=== PATIENT | female | born 1980 ===

== ENCOUNTER 2016-09-28 01:33 | Emergency (ER) | payer OTHER ==
--- NOTE | 2016-09-28 02:52 | PDOC ---
History of Present Illness - General History Source: Patient Exam Limitations: No Limitations - History of Present Illness Initial Comments: 09/28/16 06:28 The patient is a 36-year-old female (G2, P1) with no significant past medical history, and presents to the emergency department with vaginal bleeding and abdominal pain for . The patient states she is 11 weeks with twins. She reports that she only sees a lot of bright red blood when she wipes in the vaginal area. She is not wearing pads because she is not soaking through her underwear. She reports some mild cramping localized to her suprapubic region that radiates around to her lower back. The patient denies chest pain, shortness of breath, headache and dizziness. The patient denies fever, chills, nausea, vomit, diarrhea and constipation. The patient denies dysuria, frequency, urgency and hematuria. LMP: 07/06/16 Allergies: NKDA Social History: No toxic habits reported. PCP: Dr. Romero Maharaj <Lexy Leslie - Last Filed: 09/28/16 06:53> <Dena Brandt - Last Filed: 09/30/16 02:18> - General Chief Complaint: Vaginal Bleeding Stated Complaint: 11 WKS PREG/VAGINAL BLEEDING/ABD PAIN Time Seen by Provider: 09/28/16 02:51 Past History <Lexy Leslie - Last Filed: 09/28/16 06:53> - Reproductive History Is Patient Now?: Yes (#): 2 Para: 1 Cervical CA: No Dysfunctional Uterine Bleeding: No Ectopic : No Endometrial CA: No Polycystic Ovaries: No Therapeutic (s) & number: No Tubal Ligation: No Spontaneous : 0 - Immunization History Immunization Up to Date: Yes - Psycho/Social/Smoking Cessation Hx Anxiety: No Suicidal Ideation: No Smoking History: Never smoked Have you smoked in the past 12 months: No Information on smoking cessation initiated: No Hx Alcohol Use: No Drug/Substance Use Hx: No Substance Use Type: None <Dena Brandt - Last Filed: 09/30/16 02:18> - Past Medical History Allergies/Adverse Reactions: Allergies Allergy/AdvReac Type Severity Reaction Status Date / Time No Known Allergies Allergy Verified 09/28/16 02:35 Home Medications: Ambulatory Orders NK [No Known Home Medication] 09/28/16 Review of Systems - Review of Systems Able to Perform ROS?: Yes Comments:: 09/28/16 06:28 CONSTITUTIONAL: Absent: fever, chills, diaphoresis, generalized weakness, malaise, loss of appetite HEENT: Absent: rhinorrhea, nasal congestion, throat pain, throat swelling, difficulty swallowing, mouth swelling, ear pain, eye pain, visual changes CARDIOVASCULAR: Absent: chest pain, syncope, palpitations, irregular heart rate, lightheadedness , peripheral edema RESPIRATORY: Absent: cough, shortness of breath, dyspnea with exertion, orthopnea, wheezing, stridor, hemoptysis GASTROINTESTINAL: Present: (+) abdominal pain Absent: abdominal distension, nausea, vomiting, diarrhea, constipation, melena, hematochezia GENITOURINARY: Present: (+) vaginal bleeding Absent: dysuria, frequency, urgency, hesitancy, hematuria, flank pain, genital pain MUSCULOSKELETAL: Absent: myalgia, arthralgia, joint swelling SKIN: Absent: rash, itching, pallor HEMATOLOGIC/IMMUNOLOGIC: Absent: easy bleeding, easy bruising, lymphadenopathy, frequent infections ENDOCRINE: Absent: unexplained weight gain, unexplained weight loss, heat intolerance, cold intolerance NEUROLOGIC: Absent: headache, focal weakness or paresthesias, dizziness, unsteady gait, seizure, mental status changes, bladder or bowel incontinence PSYCHIATRIC: Absent: anxiety, depression, suicidal or homicidal ideation, hallucinations. <Lexy Leslie - Last Filed: 09/28/16 06:53> *Physical Exam - Vital Signs Last Vital Signs Temp Pulse Resp BP Pulse Ox 98.1 F 105 H 18 123/72 98 09/28/16 02:29 09/28/16 02:29 09/28/16 02:29 09/28/16 02:29 09/28/16 02:29 - Physical Exam Comments: 09/28/16 06:53 GENERAL: Well developed, well nourished. Awake and alert. No acute distress. HEENT: Normocephalic, atraumatic. PERRLA, EOMI. No conjunctival pallor. Sclera are non- icteric. Moist mucous membranes. Oropharynx is clear. NECK: Supple. Full ROM. No JVD. Carotid pulses 2+ and symmetric, without bruits. No thyromegaly. No lymphadenopathy. CARDIOVASCULAR: Regular rate and rhythm. No murmurs, rubs, or gallops. Distal pulses are 2+ and symmetric. PULMONARY: No evidence of respiratory distress. Lungs clear to auscultation bilaterally. No wheezing, rales or rhonchi. ABDOMINAL: Soft. Non-tender. Non-distended. No rebound or guarding. No organomegaly. Normoactive bowel sounds. MUSCULOSKELETAL Normal range of motion at all joints. No bony deformities or tenderness. No CVA tenderness. EXTREMITIES: No cyanosis. No clubbing. No edema. No calf tenderness. SKIN: Warm and dry. Normal capillary refill. No rashes. No jaundice. NEUROLOGICAL: Alert, awake, appropriate. Cranial nerves 2-12 intact. No deficits to light touch and temperature in face, upper extremities and lower extremities. No motor deficits in the in face, upper extremities and lower extremities. Normoreflexic in the upper and lower extremities. Normal speech. Toes are down- going bilaterally. Gait is normal without ataxia. PSYCHIATRIC: Cooperative. Good eye contact. Appropriate mood and affect. <Lexy Leslie - Last Filed: 09/28/16 06:53> - Vital Signs Last Vital Signs Temp Pulse Resp BP Pulse Ox 98.1 F 105 H 18 123/72 98 09/28/16 02:29 09/28/16 02:29 09/28/16 02:29 09/28/16 02:29 09/28/16 02:29 <Dena Brandt - Last Filed: 09/30/16 02:18> ED Treatment Course - LABORATORY CBC & Chemistry Diagram: 09/28/16 03:30 09/28/16 03:30 - ADDITIONAL ORDERS Additional order review: Laboratory Results 09/28/16 09/28/16 09/28/16 03:30 03:30 03:30 Sodium 138 Potassium 3.8 Chloride 106 Carbon Dioxide 21 D Anion Gap 11 BUN 13 D Creatinine 0.8 Creat Clearance w eGFR > 60 Random Glucose 97 Calcium 8.8 Total Bilirubin 0.1 L D AST 14 L ALT 17 D Alkaline Phosphatase 56 Total Protein 6.2 L Albumin 3.1 L Beta HCG, Quant Urine Color Yellow Urine Appearance Clear Urine pH 5.0 Ur Specific [place] 1.033 Urine Protein Negative Urine Glucose (UA) Negative Urine Ketones 2+ H Urine Blood 2+ H Urine Nitrite Negative Urine Bilirubin Negative Urine Urobilinogen Negative Ur Leukocyte Esterase Negative Urine RBC 2 Urine WBC 3 Ur Epithelial Cells Few Calcium Oxalate Crystal Moderate Urine Bacteria Rare Hyaline Casts 3 Urine Mucus Few Blood Type A POSITIVE Antibody Screen Negative 09/28/16 03:30 Sodium Potassium Chloride Carbon Dioxide Anion Gap BUN Creatinine Creat Clearance w eGFR Random Glucose Calcium Total Bilirubin AST ALT Alkaline Phosphatase Total Protein Albumin Beta HCG, Quant 986109.7 Urine Color Urine Appearance Urine pH Ur Specific [place] Urine Protein Urine Glucose (UA) Urine Ketones Urine Blood Urine Nitrite Urine Bilirubin Urine Urobilinogen Ur Leukocyte Esterase Urine RBC Urine WBC Ur Epithelial Cells Calcium Oxalate Crystal Urine Bacteria Hyaline Casts Urine Mucus Blood Type Antibody Screen 09/28/16 03:30 RBC 3.87 MCV 84.2 MCHC 33.9 RDW 14.8 MPV 8.9 Neutrophils % 77.0 Lymphocytes % 15.8 D Monocytes % 5.9 Eosinophils % 0.9 Basophils % 0.4 - Medications Given in the ED: ED Medications Discontinued Medications Generic Name Dose Route Start Last Admin Trade Name Freq PRN Reason Stop Dose Admin Sodium Chloride 1,000 ml 09/28/16 04:13 09/28/16 04:48 Normal Saline - IV 09/28/16 04:14 1,000 ml ONCE ONE Administration <Lexy Leslie - Last Filed: 09/28/16 06:53> - LABORATORY CBC & Chemistry Diagram: 09/28/16 03:30 09/28/16 03:30 <Dena Brandt - Last Filed: 09/30/16 02:18> Medical Decision Making - Medical Decision Making 09/28/16 05:21 blood type A+ 09/28/16 07:02 Pt has a twin gestation; light vag bleed. Complaint of left flank pain, no pain at this time, no pain with percussion. Pt does not need rhogam. SHe has stable labs and vitals. SHe will get sono pelvis this AM to evaluate FHTs. Patient will be signed out to the day ER doc. <Dena Brandt - Last Filed: 09/30/16 02:18> *DC/Admit/Observation/Transfer - Attestations Scribe Attestion: 09/28/16 06:28 Documentation prepared by Lexy Leslie, acting as lpn medical assistant for Dena Brandt MD. <Lexy Leslie - Last Filed: 09/28/16 06:53> <Brandt,Dena - Last Filed: 09/30/16 02:18> Diagnosis at time of Disposition: Threatened - Discharge Dispostion Disposition: HOME Condition at time of disposition: Improved - Referrals Referrals: Romero Maharaj MD [Primary Care Provider] - - Patient Instructions Printed Discharge Instructions: DI for Threatened Additional Instructions: Follow up with your drum sealer for further evaluation Return if you have worsening abdominal pain, vaginal bleeding, dizziness, fever? chills or any other concerns.
[2016-09-28 03:02] VITALS: TEMP 98.1; BMI 46.7
[2016-09-28 03:47] LABS: BASOPHIL 0.4 % (0-2.0); EOSINOPHIL 0.9 % (0-4.5); MCH 28.6 pg (25.7-33.7); MCHC 33.9 g/dl (32.0-36.0); MEAN CELL VOLUME 84.2 fl (80-96); MEAN PLT VOLUME 8.9 fl (7.5-11.1); PLATELET COUNT 204 K/MM3 (134-434); RDW 14.8 % (11.6-15.6); URINE APPEARANCE CLEAR; URINE BILIRUBIN NEGATIVE (NEGATIVE); URINE COLOR YELLOW; URINE GLUCOSE (UA) NEGATIVE (NEGATIVE); URINE KETONE 2+ (NEGATIVE); URINE LEUK ESTERASE NEGATIVE (NEGATIVE); URINE NITRITE NEGATIVE (NEGATIVE); URINE PROTEIN NEGATIVE (NEGATIVE); URINE UROBILINOGEN NEGATIVE E.U./dl (0.2-1.0); WHITE BLOOD COUNT 13.3 K/mm3 (4.0-10.0)
[2016-09-28 04:11] LABS: ALBUMIN 3.1 g/dl (3.4-5.0); ANION GAP 11 (8-16); BILIRUBIN,TOTAL 0.1 mg/dL (0.2-1.0); CALCIUM 8.8 mg/dL (8.5-10.1); CO2 21 mmol/L (21-32); COCKROFT - GAULT 205.7595; CREATININE 0.8 mg/dL (0.55-1.02); GLUCOSE,RANDOM 97 mg/dL (74-106); SGOT/AST 14 U/L (15-37); SGPT/ALT 17 U/L (12-78); TOT PROT 6.2 g/dl (6.4-8.2); URINE BLOOD 2+ (NEGATIVE)
[2016-09-28] MEDS ORDERED: SODIUM CHLORIDE 0.9% 500 ML INFUS.BAG IV ONE (04:13)
[2016-09-28 04:14] LABS: CALCIUM OXALATE CRYSTALS MODERATE /hpf (NONE SEEN); URINE BACTERIA RARE /hpf (NONE SEEN); URINE HYALINE CAST 3 /lpf; URINE MUCUS FEW; URINE RBC 2 /hpf (0-3); URINE WBC 3 /hpf (3-5)
[2016-09-28 04:27] LABS: ALK PHOS 56 U/L (45-117)
[2016-09-28 07:21] VITALS: BP 133/79; PULSE 82
--- NOTE | 2016-09-28 09:12 | PDOC ---
*Physical Exam - Vital Signs Last Vital Signs Temp Pulse Resp BP Pulse Ox 98.1 F 82 19 133/79 99 09/28/16 07:20 09/28/16 07:20 09/28/16 07:20 09/28/16 07:20 09/28/16 07:20 ED Treatment Course - LABORATORY CBC & Chemistry Diagram: 09/28/16 03:30 09/28/16 03:30 - ADDITIONAL ORDERS Additional order review: Laboratory Results 09/28/16 09/28/16 09/28/16 03:30 03:30 03:30 Sodium 138 Potassium 3.8 Chloride 106 Carbon Dioxide 21 D Anion Gap 11 BUN 13 D Creatinine 0.8 Creat Clearance w eGFR > 60 Random Glucose 97 Calcium 8.8 Total Bilirubin 0.1 L D AST 14 L ALT 17 D Alkaline Phosphatase 56 Total Protein 6.2 L Albumin 3.1 L Beta HCG, Quant Urine Color Yellow Urine Appearance Clear Urine pH 5.0 Ur Specific [place] 1.033 Urine Protein Negative Urine Glucose (UA) Negative Urine Ketones 2+ H Urine Blood 2+ H Urine Nitrite Negative Urine Bilirubin Negative Urine Urobilinogen Negative Ur Leukocyte Esterase Negative Urine RBC 2 Urine WBC 3 Ur Epithelial Cells Few Calcium Oxalate Crystal Moderate Urine Bacteria Rare Hyaline Casts 3 Urine Mucus Few Blood Type A POSITIVE Antibody Screen Negative 09/28/16 03:30 Sodium Potassium Chloride Carbon Dioxide Anion Gap BUN Creatinine Creat Clearance w eGFR Random Glucose Calcium Total Bilirubin AST ALT Alkaline Phosphatase Total Protein Albumin Beta HCG, Quant 598311.7 Urine Color Urine Appearance Urine pH Ur Specific [place] Urine Protein Urine Glucose (UA) Urine Ketones Urine Blood Urine Nitrite Urine Bilirubin Urine Urobilinogen Ur Leukocyte Esterase Urine RBC Urine WBC Ur Epithelial Cells Calcium Oxalate Crystal Urine Bacteria Hyaline Casts Urine Mucus Blood Type Antibody Screen 09/28/16 03:30 RBC 3.87 MCV 84.2 MCHC 33.9 RDW 14.8 MPV 8.9 Neutrophils % 77.0 Lymphocytes % 15.8 D Monocytes % 5.9 Eosinophils % 0.9 Basophils % 0.4 - Medications Given in the ED: ED Medications Discontinued Medications Generic Name Dose Route Start Last Admin Trade Name Freq PRN Reason Stop Dose Admin Sodium Chloride 1,000 ml 09/28/16 04:13 09/28/16 04:48 Normal Saline - IV 09/28/16 04:14 1,000 ml ONCE ONE Administration Medical Decision Making - Medical Decision Making 09/28/16 09:09 pt signed out to me from dr. hanna here with vag bleeding awaiting US pt has US showing twin gestation at 12 weeks pt feeling improved no abd pain abd is soft nontender blood work reviewed. rh+ will dc the pt with ob fu return precautions were discussed I discussed the physical exam findings, ancillary test results and final diagnoses with the patient. I answered all of the patient's questions. The patient was satisfied with the care received and felt comfortable with the discharge plan and treatment plan. The patient will call their primary care physician within 24 hours to arrange follow-up and will return to the Emergency Department with any new, persistent or worsening symptoms. *DC/Admit/Observation/Transfer Diagnosis at time of Disposition: Threatened - Discharge Dispostion Disposition: HOME Condition at time of disposition: Improved Admit: No - Referrals Referrals: Romero Maharaj MD [Primary Care Provider] - - Patient Instructions Printed Discharge Instructions: DI for Threatened Additional Instructions: Follow up with your yarn skeins examiner for further evaluation Return if you have worsening abdominal pain, vaginal bleeding, dizziness, fever? chills or any other concerns. - Post Discharge Activity
== END 2016-09-28 09:23 | disposition home or self-care (01) ==
LOC: JER 01:33
DX: O20.0 Threatened abortion (principal); Z3A.11 11 weeks gestation of pregnancy
CPT/HCPCS: 36415; 76810-TC; 80053; 81003; 81015; 84702; 85025; 86850; 86900; 86901; 99282-25